=== PATIENT | male | born 1975 | race Caucasian/White ===

== ENCOUNTER → 2017-12-23 | Outpatient (CLI) | payer BC ==
--- NOTE | 2017-12-23 09:32 | US ---
EXAMINATION TYPE: US liver DATE OF EXAM: 12/23/2017 COMPARISON: 04/08/2014 CLINICAL HISTORY: R74.0 TRANSAMINITIS. EXAM MEASUREMENTS: Liver Length: 13.0 cm Gallbladder Wall: Surgically absent cm CBD: 0.3 cm Right Kidney: 12.6 x 5.7 x 5.6 cm Pancreas: visualized portions wnl Liver: Slightly coarsened in echo pattern Gallbladder: Surgically absent CBD: wnl Right Kidney: No hydronephrosis or masses seen IMPRESSION: 1. Postcholecystectomy. 2. Liver slightly coarsened in echo pattern but stable from the previous exam without evidence of foc al mass. This can be seen with fatty infiltration or hepatocellular disease correlate clinically.
== END | disposition home or self-care (01) ==
LOC: RADUSWWP 08:48
PROVIDERS: ATTEND Family Medicine Addiction Medicine
DX: R74.0 Nonspecific elevation of levels of transaminase and lactic acid dehydrogenase [LDH] (principal); Z90.49 Acquired absence of other specified parts of digestive tract
CPT/HCPCS: 76705